=== PATIENT | female | born 1945 | race Caucasian/White ===

== ENCOUNTER 2024-10-13 10:38 | Emergency (ER) | payer MEDICARE, OTHER, SELFPAY ==
[2024-10-13 10:56] VITALS: BP 158/87
--- NOTE | 2024-10-13 13:11 | ED.GENMED ---
History of Present Illness
General
Chief Complaint: Skin Problem
Source: patient
Time Seen by Provider: 10/13/24 12:50
History of Present Illness
History of Present Illness:
78-year-old female presents to the emergency room complaining of left-sided rash. Patient states the rash began a couple days ago but more significantly today. She has some discomfort involving her nose and her lip. No facial palsy. No headache
or dizziness. She denies any eye pain or blurred vision. Patient was seen at an urgent care yesterday primarily for URI type symptoms. She was started on a course of prednisone for that. The urgent care provider did not feel the rash was
consistent with shingles at the time. Pain is increased with touching the area.
Phy Exam
Physical Exam
Physical Exam:
General: Awake, Alert, Oriented X3. No acute distress.
Vitals: unremarkable
Head: Atraumatic
Eyes: Pupils equal, EOMI. no corneal uptake of fluorescein.
Throat: Airway intact, no exudates, no intraoral lesions
Neck: Trachea midline
Lungs: Clear and equal b/l
Heart: Regular rate, no murmurs
Abd: Soft, Nontender, No pulsatile mass
Neuro: Nonfocal
Skin: Warm, dry, vesicular rash noted left upper lip, nose and midface extending up to the scalp.
Extremities: pulses equal b/l, no edema
Course
Orders/Labs/Results
Orders:
Orders
10/13/24 13:07
Valacyclovir HCl [Valtrex] 1,000 mg PO NOW STA
10/13/24 13:23
Fluorescein Sodium [Ful-Karen] 1 mg .ROUTE .STK-MED ONE
Purified Water Eye Wash [Dacriose Eye Wash Solution] 120 ml .ROUTE .STK-MED ONE
Vital Signs
Initial and Last Documented VS:
Initial Vital Signs
Temp Pulse Resp BP Pulse Ox
98.9 F 93 18 158/87 98
10/13/24 10:56 10/13/24 10:56 10/13/24 10:56 10/13/24 10:56 10/13/24 10:56
Last Documented Vital Signs
Temp Pulse Resp BP Pulse Ox
98.9 F 93 18 158/87 98
10/13/24 10:56 10/13/24 10:56 10/13/24 10:56 10/13/24 10:56 10/13/24 10:56
MDM/Problems Addressed
Differential Diagnosis Includes:
Shingles, impetigo contact dermatitis
MDM/Problems Addressed:
Patient presents with a rash that is consistent with shingles. The overall presentation is also consistent with shingles. Will start Valtrex. Patient states her pain is not severe. Recommend Tylenol initially. Will send a prescription of
oxycodone if the pain becomes more severe. Follow-up with primary care provider. Return for dizziness, eye pain or blurred vision etc.
*Pulse Oximetry
Patient hypoxic: no
*Critical Care Note
Total Time (30-74mins, 75-104mins- exclusive of procedures): Not Applicable
ED Attending Note
-
Portions of this chart may have been created with voice recognition software.� Occasional wrong word or��sound alike� substitutions may have occurred due to the inherent limitations of voice recognition software.
Discharge Plan
Departure
Patient Disposition: Home (Routine Discharge)
Date of Disposition: 10/13/24
Time of Disposition: 13:15
Patient with high blood pressure during this ER visit?: Yes
Condition: Good
Discharge Problem:
Shingles
Instructions: Shingles
Prescriptions:
New
valacyclovir [Valtrex] 1 gram tablet
1,000 mg PO TID Qty: 21 0RF
oxycodone 5 mg tablet
5 mg PO Q6H PRN (Reason: Pain) Qty: 12 0RF
Referrals:
Eliseo Rendon MD [Family Provider] -
Activity Restrictions/Additional Instructions:
I believe the rash on your face is related to shingles which is a reactivation of the chickenpox virus. You had been prescribed a medication called Valtrex which you should take 3 times a day for 7 days. Return to the emergency room if you develop
any pain in your eye, blurred vision or other eye symptoms. I have sent a prescription for oxycodone which is a opiate pain medication. You can take this once every 6 hours if you need to for severe pain but first try Tylenol and ibuprofen if you
can take it. The virus is contagious by direct contact to those who have not had chickenpox or chickenpox vaccine or those who are immunocompromised.
Interventions
Interventions:
*Risk Screen - Suicide Last Done: 10/13/24 10:56
*General Assessment Last Done: 10/13/24 10:56
*Neglect/Abuse Screening Last Done: 10/13/24 10:56
*ED- Fall Risk Assessment Last Done: 10/13/24 10:56
*ED COVID-19 Vaccine History Last Done: 10/13/24 10:56
*Nursing Disposition Last Done: 10/13/24 13:35
Discharge Date and Time
Discharge Date/Time: 10/13/24 13:37
Print Language: BULGARIAN
[2024-10-13] MEDS: VALTREX 1000 MG PO (13:20)
== END 2024-10-13 13:37 | disposition home or self-care (01) ==
LOC: EMR 10:38
PROVIDERS: EMERGENCY PHYSICIAN Emergency Medicine; FAMILY PHYSICIAN Internal Medicine
DX: B02.9 Zoster without complications (principal)
CPT/HCPCS: 99282